=== PATIENT | female | born 1945 | race Caucasian/White ===

== ENCOUNTER 2024-03-30 16:39 | Emergency (ER) | payer MEDICARE, OTHER, SELFPAY ==
[2024-03-30 16:41] VITALS: BP 156/84
[2024-03-30 17:23] LABS: ALT (SGPT) 18 U/L (0-35); AST (SGOT) 27 U/L (14-36); Albumin 4.6 g/dl (3.5-5.0); Alkaline Phosphatase 68 U/L (38-126); Blood Urea Nitrogen 15 mg/dl (7-17); Calcium 9.5 mg/dl (8.4-10.2); Carbon Dioxide 25 mmol/L (22-30); Chloride 95 mmol/L (98-107); Glucose 100 mg/dl (70-99); Potassium 4.7 mmol/L (3.5-5.1); Sodium 135 mmol/L (135-145); Total Bilirubin 1.4 mg/dl (0.2-1.3); eGFR > 60.00
[2024-03-30 17:25] LABS: % Basophils 0.9 % (0-2); % Eosinophils 2.7 % (0-6); % Immature Granulocytes 1.4 % (0-0.5); % Lymphocytes 8.7 % (20.5-51.1); % Monocytes 4.6 % (1.7-9.3); % Neutrophils 81.7 % (42.2-75.2); Absolute Basophils 0.2 10^3/uL (0-0.2); Absolute Eosinophils 0.5 10^3/uL (0-0.7); Absolute Immature Granulocytes 0.3 10^3/uL (0-0.05); Absolute Lymphocytes 1.8 10^3/uL (1.2-3.4); Absolute Monocytes 0.9 10^3/uL (0.1-0.6); Absolute Neutrophils 16.7 10^3/uL (1.4-6.5); Mean Corpuscular Hgb 18.8 pg (27.0-31.0); Mean Corpuscular Volume 62.6 fL (81.0-99.0); Nucleated Red Blood Cells % 0 %; Platelet Count 296 10^3/uL (130-400); Red Blood Cell Count 6.39 10^6/uL (4.20-5.40); Red Cell Dist. Width 21.5 % (11.5-14.5); White Blood Cell Count 20.4 10^3/uL (4.8-10.8)
--- NOTE | 2024-03-30 18:05 | ED.GENMED ---
History of Present Illness
General
Chief Complaint: Dizziness
Source: patient
Exam Limitations: none
Time Seen by Provider: 03/30/24 17:52
History of Present Illness
History of Present Illness:
This is a 78 year old female that comes in with c/o dizziness. Sates that she went to PT yesterday for strengthening in her legs. States that this was her first visit and she got up on the table. States that she laid down and the Physical therapist
put his hand on the back of her head and flicked it to the left. States that she became nauseated and dizzy and she had humming in her ears. States that when she is sitting still she is ok but if she moves she feels like she is spinning. Denies any
fever, chills, chest pain, SOB, abd pain, vomiting, diarrhea, headache, urinary burning.
Past History
Past History
ED Past Medical History: Cancer (Skin CA), GERD, HTN, Hypercholesterolemia, Other (Polycythemia Vera, dizziness, Colitis, Diverticulitis, ) and Other (Diverticulitis, gastric ulcer and H. pylori)
ED Past Surgical History: Gynecological (Hysterectomy), Orthopedic (left knee replacement) and Other (Rectocele repair 2013, cataracts, )
Social History
Tobacco: Former smoker
Alcohol: None
Drug: None
Personal:
Living: alone
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
Family History
Family History: Other (n/c)
Review of Systems
Review of Systems
All Other Systems: ROS reviewed and negative except as documented in HPI and ROS
Constitutional: Reports no symptoms; Denies fever or chills
EENT: Reports no symptoms
Respiratory: Reports no symptoms; Denies cough or trouble breathing
Cardiac: Reports no symptoms; Denies chest pain
ABD/GI: Reports nausea; Denies abdominal pain, vomiting or diarrhea
: Reports no symptoms; Denies dysuria, frequency or urgency
Musculoskeletal: Reports no symptoms
Skin: Reports no symptoms
Neurological: Reports dizzy; Denies headache
Psychiatric: Reports no symptoms
Phy Exam
General Physical Exam
General Presentation: no apparent distress
General age: appears stated age
General Skin: warm and dry
General Habitus: elderly
General Mental: alert
General Hydration: appears well hydrated
ENT Exam
ENT Exam: TM's normal, pharynx normal and neck supple
Eye Exam
Eye Exam: EOMI
Cardiovascular Exam
Cardiovascular Exam: regular rate/rhythm, no edema and normal peripheral pulses
Pulmonary Exam
Pulmonary Exam: lungs clear, no respiratory distress, no rales, chest non tender, no crackles, no rhonchi, no wheezing and no cough
Gastrointestinal Exam
Gastrointestinal Exam: normal bowel sounds, non tender, soft, no organomegaly, no pulsatile mass and non distended
Musculoskeletal Exam
Musculoskeletal Exam: full ROM and no edema
Skin Exam
Skin Exam: normal color, warm/dry, no rash, no petechia and other (Open wound on right posterior upper arm from Skin cancer removal)
Psychiatric Exam
Psychiatric Exam: normal mood/affect
Course
Orders/Labs/Results
Orders:
Orders
03/30/24 16:45
Electrocardiogram (*1) Urgent
Reason for Study: Chest Pain
03/30/24 16:46
EKG- Treatment ONCE
03/30/24 16:53
CMP [Comprehensive Metabolic Panel] Urgent
Complete Blood Count/With Diff Urgent
03/30/24 18:04
CT Head & Neck Angio W/wo IV Urgent
Comment:
Reason For Exam: Dizziness after PT moved head
0.9% Sodium Chloride 500 ml [Nss] 500 ml IV BOLUS
Meclizine [Antivert] 50 mg PO NOW STA
03/30/24 18:07
Ondansetron Injectable [Zofran] 4 mg IV NOW STA
03/30/24 18:37
Troponin I Urgent
03/30/24 19:55
Urinalysis Reflex To Culture Urgent
Date Specimen was Collected: 03/30/24
Time Specimen was Collected: 19:53
Abnormal Lab Results
03/30/24
16:53
WBC 20.4 H 10^3/uL
(4.8-10.8)
RBC 6.39 H 10^6/uL
(4.20-5.40)
MCV 62.6 L fL
(81.0-99.0)
MCH 18.8 L pg
(27.0-31.0)
MCHC 30.0 L g/dL
(33.0-37.0)
RDW 21.5 H %
(11.5-14.5)
Abs Immat Gran (auto) 0.3 H 10^3/uL
(0-0.05)
Absolute Neuts (auto) 16.7 H 10^3/uL
(1.4-6.5)
Absolute Monos (auto) 0.9 H 10^3/uL
(0.1-0.6)
Immature Gran % 1.4 H %
(0-0.5)
Neutrophils % 81.7 H %
(42.2-75.2)
Lymphocytes % 8.7 L %
(20.5-51.1)
Chloride 95 L mmol/L
(98-107)
Glucose 100 H mg/dl
(70-99)
Total Bilirubin 1.4 H mg/dl
(0.2-1.3)
03/30/24 16:53
03/30/24 16:53
Leukocytosis (consistent to prior labs but slightly lower, Anemia, Chloride slightly low. Glucose nonfasting. Troponin <0.012, Urine negative for infection.
Vital Signs
Initial and Last Documented VS:
Initial Vital Signs
Temp Pulse Resp BP Pulse Ox
97.7 F 84 18 156/84 97
03/30/24 16:41 03/30/24 16:41 03/30/24 16:41 03/30/24 16:41 03/30/24 16:41
Last Documented Vital Signs
Temp Pulse Resp BP Pulse Ox
97.7 F 66 18 119/55 100
03/30/24 16:41 03/30/24 19:00 03/30/24 19:07 03/30/24 19:00 03/30/24 19:00
MDM/Problems Addressed
Differential Diagnosis Includes:
Vertigo,
MDM/Problems Addressed:
This is a 78 year old female that went to PT yesterday and patient states that she laid down on the table and they flicked her head to the left and she became nauseated and dizzy.
will check labs and urine, CT angio of head and neck. Give IV fluids, Antivert and Zofran.
Back into see patient. Patient states that she is feeling much better. Got patient OOB and she was able to walk around in the room without assistance. Reviewed labs and CT finding or Sinusitis. Patient states that she has never had trouble with
this. Feel that this may also be due to her Vertigo. Will have patient increase her water intake to 8-8oz glasses daily. Will sent prescription for Antivert and patient to follow up with the family doctor. Return with any concerns.
Chronic conditions affecting care:
Vertigo
Acute Exacerbation and/or Progression of Chronic Illness:
Vertigo
*Radiology
Radiology exam reviewed: radiology read reviewed (CTA head and neck-Moderate bilateral sphenoid sinusitis. Mild diffuse cortical and cerebellar atrophy. There is a small amount of partially calcific atherosclerotic plaque at the right carotid
bifurcation without significant stenosis. There is a 2cm mass in the right lobw of the thyroid which, if ) and other (CT cont- if clinically indicated, could be best further evaluated and followed with Thyroid ultrasounds. I note that a similar mass
was demonstrated on 03/29/2018 ultrasound examination )
*Pulse Oximetry
Patient hypoxic: no
*EKG
Interpreted by ED Provider?: Yes
Heart Rate: 79
Rate: normal
Rhythm: sinus
[place]: left axis deviation
Interval: normal interval
QRS Pattern: low voltage
Ischemia: no ischemia
*Tool Maker Bench Interpretation
Rate: normal
Heart Rate: 74
Rhythm: sinus
*Critical Care Note
Total Time (30-74mins, 75-104mins- exclusive of procedures): Not Applicable
ED Attending Note
-
Portions of this chart may have been created with voice recognition software.� Occasional wrong word or��sound alike� substitutions may have occurred due to the inherent limitations of voice recognition software.
Discharge Plan
Departure
Patient Disposition: Home (Routine Discharge)
Date of Disposition: 03/30/24
Time of Disposition: 20:56
Patient with high blood pressure during this ER visit?: No
Condition: Good
Covid-19: Not Applicable
Discharge Problem:
Vertigo
Instructions: Vertigo (a Type of Dizziness) (DC)
Prescriptions:
New
meclizine [Antivert] 50 mg tablet
25 mg PO BID PRN (Reason: dizziness) Qty: 10 0RF
No Action
pravastatin 20 MG tablet
20 mg PO HS
acetaminophen [Tylenol Arthritis] 650 MG tablet extended release
650 mg PO DAILYPRN PRN (Reason: pain)
propranolol 10 MG tablet
10 mg PO BID
pantoprazole 40 MG tablet,delayed release (DR/EC)
40 mg PO BID
hydrochlorothiazide 25 MG tablet
25 mg PO DAILY
meclizine 25 MG tablet
25 mg PO Q8HPRN PRN (Reason: Dizziness or vertigo ) Qty: 20 0RF
Referrals:
Nai Lozada MD [Family Provider] - Call in 1-3 days for appt
Activity Restrictions/Additional Instructions:
As discussed, your blood work shows your elevated white blood cell count but this is consistent with your prior labs. Your urine is negative for infection and your CT of the head and neck shows that you have sinusitis. Please increase your water
intake to 8-8oz glasses daily. Your prescription for Antivert has been sent to your Pharmacy. You may take this every 12 hours as needed for dizziness. Follow up with the family doctor for recheck. IF YOU HAVE INCREASED OR CHANGING DIZZINESS, OR YOU
HAVE ANY OTHER CONCERNS PLEASE RETURN TO THE EMERGENCY ROOM.
Interventions
Interventions:
*Risk Screen - Suicide Last Done: 03/30/24 18:21
*General Assessment Last Done: 03/30/24 18:21
*Neglect/Abuse Screening Last Done: 03/30/24 18:21
ED- Fall Risk Assessment Last Done: 03/30/24 19:07
*ED COVID-19 Vaccine History Last Done: 03/30/24 18:21
ED- Neurological Assessment Last Done: 03/30/24 19:06
ED- Cardiac Assessment Last Done: 03/30/24 19:07
Discharge Date and Time
Print Language: NORWEGIAN
[2024-03-30 18:20] VITALS: BMI 31.9
[2024-03-30] MEDS: ANTIVERT 50 MG PO (18:37)
[2024-03-30] MEDS: ZOFRAN 4 MG IV (18:38)
[2024-03-30] MEDS: NSS 500 IV (18:39)
[2024-03-30 19:00] VITALS: BP 119/55
[2024-03-30 19:13] LABS: Troponin I < 0.012 ng/ml
[2024-03-30 20:00] VITALS: BP 111/56
[2024-03-30 20:07] LABS: Urine Albumin Negative (Neg - Trace); Urine Bilirubin Negative (Negative); Urine Character Clear (Clear); Urine Color Yellow; Urine Glucose Negative (Negative); Urine Ketone Negative (Negative); Urine Leukocyte Negative (Negative); Urine Nitrite Negative (Negative); Urine Occult Blood Negative (Negative); Urine Specific Gravity 1.005 (<1.030); Urine Urobilinogen Negative (Neg - 1+); Urine pH 6.5 (5.0-9.0)
== END 2024-03-30 21:16 | disposition home or self-care (01) ==
LOC: EMR 16:39
PROVIDERS: Clinical Nurse Specialist Family Health; Physician Assistant; EMERGENCY PHYSICIAN Emergency Medicine; FAMILY PHYSICIAN Family Medicine
DX: R42 Dizziness and giddiness (principal); K21.9 Gastro-esophageal reflux disease without esophagitis; I10 Essential (primary) hypertension; E78.00 Pure hypercholesterolemia, unspecified; Z87.891 Personal history of nicotine dependence
CPT/HCPCS: 96374; 96361; 99284; 70496; 70498; 80053; 81003; 84484; 85025; 93005; Q9967

== ENCOUNTER → 2024-04-28 13:45 | Outpatient (REF) | payer MEDICARE, OTHER, SELFPAY | LOC: WDC 13:45 | PROVIDERS: ATTENDING PHYSICIAN Family Medicine | DX: Z12.31 Encounter for screening mammogram for malignant neoplasm of breast (principal) | CPT/HCPCS: 77063; 77067 ==

== ENCOUNTER → 2024-05-09 11:31 | Outpatient (REF) | payer MEDICARE, OTHER, SELFPAY | LOC: RAD 11:31 | PROVIDERS: ATTENDING PHYSICIAN Family Medicine; OTHER PHYSICIAN Otolaryngology | DX: E04.1 Nontoxic single thyroid nodule (principal) | CPT/HCPCS: 76536 ==

== ENCOUNTER 2024-08-15 12:21 | Emergency (ER) | payer MEDICARE, OTHER, SELFPAY ==
[2024-08-15] VITALS (8 sets, daily range): BP systolic 100–135; BP diastolic 52–70; BMI 31.7
--- NOTE | 2024-08-15 12:26 | ED.GENMED ---
ED Provider Triage
<Arturo Morelos PA-C - Last Filed: 08/15/24 12:32>
-
Patient seen by provider in Triage?: Seen in Triage
Attestation: A medical screening examination has been initiated by a qualified medical provider. Based on the assessment performed at this time, it has been determined that an emergent medical condition may exist and the patient has been informed
that further medical evaluation and possible additional diagnostic testing may be needed.
HPI: 79-year-old female presents for evaluation of confusion and abnormal labs. Had labs checked yesterday showing a low sodium level, family member is uncertain of the exact lab value. She does take hydrochlorothiazide. Has been intermittently
confused for the past 6 days. Also complaining of acute on chronic low back pain with inability to ambulate, had outpatient x-rays showing progression of prior compression fractures
GENERAL: Alert , in no apparent distress
EYE: No visual abnormalities.
NECK: Trachea midline
ENT: No visible abnormalities.
LUNGS: No acute respiratory distress
NEUROLOGICAL: Alert and oriented
SKIN: Skin intact. No visible changes.
MUSCULOSKELETAL: Moving extremities normally
PSYCH: Normal and appropriate interaction.
This is a medical evaluation conducted in person to initiate diagnostic evaluation and provide initial therapeutics. Please see further documentation by the treating clinician.
History of Present Illness
<Arturo Morelos PA-C - Last Filed: 08/15/24 12:32>
General
Chief Complaint: Abnormal Lab Value
Time Seen by Provider: 08/15/24 16:01
<Bandar White Jr., PA-C - Last Filed: 08/15/24 20:34>
General
Source: patient and family
Exam Limitations: none
Nursing documentation reviewed up to this point in time: agreed with
History of Present Illness
History of Present Illness:
79-year-old female past medical history of polycythemia vera presenting to the emergency she was called and told that she had a sodium level in the 120s and was told to Go immediately to the ER. Has had some back pain but has a known vertebral
compression fracture. Was told to follow-up with Ortho for this. Also has felt 'off. Denies any loss of conscious any syncopal episodes. Denies any chest pain shortness of breath. Denies any abdominal pain. Has had some decreasing bowel
movements.
Past History
<Arturo Morelos PA-C - Last Filed: 08/15/24 12:32>
Past History
ED Past Medical History: Cancer (Skin CA), GERD, HTN, Hypercholesterolemia, Other (Polycythemia Vera, dizziness, Colitis, Diverticulitis, ) and Other (Diverticulitis, gastric ulcer and H. pylori)
ED Past Surgical History: Gynecological (Hysterectomy), Orthopedic (left knee replacement) and Other (Rectocele repair 2013, cataracts, )
Social History
Tobacco: Former smoker
Alcohol: None
Drug: None
Personal:
Living: alone
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
Family History
Family History: Other (n/c)
Review of Systems
<Bandar White Jr., PA-C - Last Filed: 08/15/24 20:34>
Review of Systems
Allergies reviewed?: Yes
All Other Systems: ROS reviewed and negative except as documented in HPI and ROS
Phy Exam
<Bandar White Jr., PA-C - Last Filed: 08/15/24 20:34>
Physical Exam
Physical Exam:
GENERAL: Alert , in no apparent distress
EYE: pupils equal and reactive
NECK: Supple, no significant adenopathy.
ENT: o/p clr, mmm.
CARDIAC: Regular rate and rhythm .
LUNGS: Clear breath sounds bilaterally, no acute respiratory distress, no wheezes/rales/rhonchi
ABDOMEN: Soft, without focal tenderness, no r/g, no cvat
NEUROLOGICAL: Alert and oriented, no focal neuro deficits
SKIN: Warm and dry, skin intact.
MUSCULOSKELETAL: No edema, well perfused.
PSYCH: Normal and appropriate interaction.
Course
<Arturo Morelos PA-C - Last Filed: 08/15/24 12:32>
Orders/Labs/Results
Orders:
Orders
08/15/24 12:40
Complete Blood Count/With Diff Urgent
Comprehensive Metabolic Panel Urgent
Lipase Urgent
Comment: ADD ON
Serum Osmolality Urgent
TSH Urgent
08/15/24 12:53
Osmolality, Random Urine Urgent
Date Specimen was Collected: 08/15/24
Time Specimen was Collected: 12:35
Urine Sodium Urgent
Date Specimen was Collected: 08/15/24
Time Specimen was Collected: 12:35
08/15/24 12:54
Urinalysis Reflex To Culture Urgent
Date Specimen was Collected: 08/15/24
Time Specimen was Collected: 12:34
Urine Microscopic Reflex Cult Urgent
Urine Culture Urgent
REKHA Source: U
Specimen Description:
Date Specimen was Collected: 08/15/24
Time Specimen was Collected: 12:34
08/15/24 16:51
CT Head W/o Iv Contrast Urgent
Comment:
Reason For Exam: hit head, confusion
Lumbar Spine, 2 or 3 View [CR Lumbar Spine 2 Or 3 Views] Urgent
Comment:
Reason For Exam: low back pain
08/15/24 17:01
Add On- LAB Urgent
Tests Added?: lipase
08/15/24 17:11
0.9% Sodium Chloride 500 ml [Nss] 500 ml IV BOLUS
08/15/24 17:53
Abdomen Xray - 1 View [CR Abdomen - 1 View] Urgent
Comment:
Reason For Exam: constipation
08/15/24 18:40
Ketorolac [Toradol] 15 mg IV NOW STA
Abnormal Lab Results
08/15/24 08/15/24 08/15/24
12:40 12:53 12:54
WBC 34.5 H 10^3/uL
(4.8-10.8)
RBC 7.05 H 10^6/uL
(4.20-5.40)
MCV 60.9 L fL
(81.0-99.0)
MCH 17.4 L pg
(27.0-31.0)
MCHC 28.7 L g/dL
(33.0-37.0)
RDW 22.5 H %
(11.5-14.5)
Plt Count 413 H 10^3/uL
(130-400)
Abs Immat Gran (auto) 1.1 H 10^3/uL
(0-0.05)
Absolute Neuts (auto) 29.8 H 10^3/uL
(1.4-6.5)
Absolute Monos (auto) 1.0 H 10^3/uL
(0.1-0.6)
Absolute Eos (auto) 0.9 H 10^3/uL
(0-0.7)
Absolute Basos (auto) 0.4 H 10^3/uL
(0-0.2)
Immature Gran % 3.2 H %
(0-0.5)
Neutrophils % 86.6 H %
(42.2-75.2)
Lymphocytes % 3.7 L %
(20.5-51.1)
Sodium 130 L mmol/L
(135-145)
Chloride 92 L mmol/L
(98-107)
BUN 22 H mg/dl
(7-17)
Glucose 119 H mg/dl
(70-99)
Serum Osmolality 271 L mOsm/kg
(275-300)
Total Bilirubin 1.4 H mg/dl
(0.2-1.3)
Albumin 5.3 H g/dl
(3.5-5.0)
Leukocyte Esterase Rfl 1+ A
(Negative)
Urine Bacteria (Reflex) Few A
(Negative)
Urine Sodium 22 L mmol/L
(30-90)
Urine Albumin (Reflex) 1+ A
(Neg - Trace)
08/15/24 12:40
08/15/24 12:40
Vital Signs
Initial and Last Documented VS:
Initial Vital Signs
Temp Pulse Resp BP Pulse Ox
97.5 F 98 16 135/66 94
08/15/24 12:26 08/15/24 12:26 08/15/24 12:26 08/15/24 12:26 08/15/24 12:26
Last Documented Vital Signs
Temp Pulse Resp BP Pulse Ox
98.8 F 83 16 118/53 98
08/15/24 20:08 08/15/24 20:08 08/15/24 19:00 08/15/24 20:08 08/15/24 20:08
<Bandar White Jr., PA-Gómez - Last Filed: 08/15/24 20:34>
Orders/Labs/Results
Orders:
Orders
08/15/24 12:40
Complete Blood Count/With Diff Urgent
Comprehensive Metabolic Panel Urgent
Lipase Urgent
Comment: ADD ON
Serum Osmolality Urgent
TSH Urgent
08/15/24 12:53
Osmolality, Random Urine Urgent
Date Specimen was Collected: 08/15/24
Time Specimen was Collected: 12:35
Urine Sodium Urgent
Date Specimen was Collected: 08/15/24
Time Specimen was Collected: 12:35
08/15/24 12:54
Urinalysis Reflex To Culture Urgent
Date Specimen was Collected: 08/15/24
Time Specimen was Collected: 12:34
Urine Microscopic Reflex Cult Urgent
Urine Culture Urgent
REKHA Source: U
Specimen Description:
Date Specimen was Collected: 08/15/24
Time Specimen was Collected: 12:34
08/15/24 16:51
CT Head W/o Iv Contrast Urgent
Comment:
Reason For Exam: hit head, confusion
Lumbar Spine, 2 or 3 View [CR Lumbar Spine 2 Or 3 Views] Urgent
Comment:
Reason For Exam: low back pain
08/15/24 17:01
Add On- LAB Urgent
Tests Added?: lipase
08/15/24 17:11
0.9% Sodium Chloride 500 ml [Nss] 500 ml IV BOLUS
08/15/24 17:53
Abdomen Xray - 1 View [CR Abdomen - 1 View] Urgent
Comment:
Reason For Exam: constipation
08/15/24 18:40
Ketorolac [Toradol] 15 mg IV NOW STA
Abnormal Lab Results
08/15/24 08/15/24 08/15/24
12:40 12:53 12:54
WBC 34.5 H 10^3/uL
(4.8-10.8)
RBC 7.05 H 10^6/uL
(4.20-5.40)
MCV 60.9 L fL
(81.0-99.0)
MCH 17.4 L pg
(27.0-31.0)
MCHC 28.7 L g/dL
(33.0-37.0)
RDW 22.5 H %
(11.5-14.5)
Plt Count 413 H 10^3/uL
(130-400)
Abs Immat Gran (auto) 1.1 H 10^3/uL
(0-0.05)
Absolute Neuts (auto) 29.8 H 10^3/uL
(1.4-6.5)
Absolute Monos (auto) 1.0 H 10^3/uL
(0.1-0.6)
Absolute Eos (auto) 0.9 H 10^3/uL
(0-0.7)
Absolute Basos (auto) 0.4 H 10^3/uL
(0-0.2)
Immature Gran % 3.2 H %
(0-0.5)
Neutrophils % 86.6 H %
(42.2-75.2)
Lymphocytes % 3.7 L %
(20.5-51.1)
Sodium 130 L mmol/L
(135-145)
Chloride 92 L mmol/L
(98-107)
BUN 22 H mg/dl
(7-17)
Glucose 119 H mg/dl
(70-99)
Serum Osmolality 271 L mOsm/kg
(275-300)
Total Bilirubin 1.4 H mg/dl
(0.2-1.3)
Albumin 5.3 H g/dl
(3.5-5.0)
Leukocyte Esterase Rfl 1+ A
(Negative)
Urine Bacteria (Reflex) Few A
(Negative)
Urine Sodium 22 L mmol/L
(30-90)
Urine Albumin (Reflex) 1+ A
(Neg - Trace)
08/15/24 12:40
08/15/24 12:40
Vital Signs
Initial and Last Documented VS:
Initial Vital Signs
Temp Pulse Resp BP Pulse Ox
97.5 F 98 16 135/66 94
08/15/24 12:26 08/15/24 12:26 08/15/24 12:26 08/15/24 12:26 08/15/24 12:26
Last Documented Vital Signs
Temp Pulse Resp BP Pulse Ox
98.8 F 83 16 118/53 98
02/04/25 20:08 08/15/24 20:08 08/15/24 19:00 08/15/24 20:08 08/15/24 20:08
<Bandar White Jr., PA-C - Last Filed: 08/15/24 20:34>
MDM/Problems Addressed
MDM/Problems Addressed:
79-year-old female presenting to the emergency department today with concerns of low sodium. Here sodium level 130 chloride 92. She does cart drink a fair amount of free water. No altered mental status during my assessment normal interaction
fully alert and oriented. White count 34.5 which is slightly higher than her baseline. Does have a history of polycythemia and has plans for phlebotomy as an outpatient for this.
<Bandar White Jr., PA-C - Last Filed: 08/15/24 20:34>
*Critical Care Note
Total Time (30-74mins, 75-104mins- exclusive of procedures): Not Applicable
ED Attending Note
<Arturo Morelos PA-C - Last Filed: 08/15/24 12:32>
-
Portions of this chart may have been created with voice recognition software.� Occasional wrong word or��sound alike� substitutions may have occurred due to the inherent limitations of voice recognition software.
Discharge Plan
Departure
Patient Disposition: Home (Routine Discharge)
Date of Disposition: 08/15/24
Time of Disposition: 20:26
Patient with high blood pressure during this ER visit?: No
Condition: Good
Covid-19: Not Applicable
Discharge Problem:
Hyponatremia, Constipation, Vertebral compression fracture, Leukocytosis
Instructions: Polycythemia vera, Hyponatremia
Prescriptions:
New
lidocaine 5 % adhesive patch,medicated
1 patch topical DAILY Qty: 15 0RF
No Action
pravastatin 20 MG tablet
20 mg PO HS
acetaminophen [Tylenol Arthritis] 650 MG tablet extended release
650 mg PO DAILYPRN PRN (Reason: pain)
propranolol 10 MG tablet
10 mg PO BID
pantoprazole 40 MG tablet,delayed release (DR/EC)
40 mg PO BID
hydrochlorothiazide 25 MG tablet
25 mg PO DAILY
meclizine 25 MG tablet
25 mg PO Q8HPRN PRN (Reason: Dizziness or vertigo ) Qty: 20 0RF
meclizine [Antivert] 50 mg tablet
25 mg PO BID PRN (Reason: dizziness) Qty: 10 0RF
Referrals:
Williams Contreras MD [Active] - Follow up in 5-7 days
Lavinia Diehl MD [Non-Admitting Privileges] - Follow up in 5-7 days
Nai Lozada MD [Family Provider] -
Jack Marsh MD [Active] - Follow up in 5-7 days
Activity Restrictions/Additional Instructions:
You came to the emergency department today with concerns of low sodium. Here your sodium was 130. Please follow-up closely with your primary care doctor for reassessment of this. You can also follow-up with neurology concerning there was some
age-related changes on your. Additionally you had elevations on your blood counts. Please follow-up closely for this as well. Return for any worsening, new or concerning symptoms.
Interventions
Interventions:
*Risk Screen - Suicide Last Done: 08/15/24 12:30
*General Assessment Last Done: 08/15/24 12:30
*Neglect/Abuse Screening Last Done: 08/15/24 17:04
ED- Fall Risk Assessment Last Done: 08/15/24 20:08
*ED COVID-19 Vaccine History Last Done: 08/15/24 17:04
Discharge Date and Time
Print Language: STATELESS
[2024-08-15 13:03] LABS: Hematocrit 42.9 % (37.0-47.0); Hemoglobin 12.3 g/dL (12.0-16.0); Mean Corp Hgb Conc. 28.7 g/dL (33.0-37.0); Mean Corpuscular Hgb 17.4 pg (27.0-31.0); Mean Corpuscular Volume 60.9 fL (81.0-99.0); Red Blood Cell Count 7.05 10^6/uL (4.20-5.40); Red Cell Dist. Width 22.5 % (11.5-14.5); White Blood Cell Count 34.5 10^3/uL (4.8-10.8)
[2024-08-15 13:14] LABS: Urine Albumin 1+ (Neg - Trace); Urine Bilirubin Negative (Negative); Urine Character Clear (Clear); Urine Color Yellow; Urine Glucose Negative (Negative); Urine Ketone Negative (Negative); Urine Leukocyte 1+ (Negative); Urine Nitrite Negative (Negative); Urine Occult Blood Negative (Negative); Urine Urobilinogen Negative (Neg - 1+)
[2024-08-15 13:14] LABS: ALT (SGPT) 16 U/L (0-35); AST (SGOT) 23 U/L (14-36); Albumin 5.3 g/dl (3.5-5.0); Alkaline Phosphatase 68 U/L (38-126); Blood Urea Nitrogen 22 mg/dl (7-17); Calcium 9.6 mg/dl (8.4-10.2); Carbon Dioxide 26 mmol/L (22-30); Chloride 92 mmol/L (98-107); Glucose 119 mg/dl (70-99); Potassium 4.6 mmol/L (3.5-5.1); Sodium 130 mmol/L (135-145); Total Bilirubin 1.4 mg/dl (0.2-1.3); Total Protein 7.9 g/dl (6.3-8.2)
[2024-08-15 13:35] LABS: % Eosinophils 2.6 % (0-6); % Immature Granulocytes 3.2 % (0-0.5); % Lymphocytes 3.7 % (20.5-51.1); % Monocytes 2.9 % (1.7-9.3); % Neutrophils 86.6 % (42.2-75.2); Absolute Basophils 0.4 10^3/uL (0-0.2); Absolute Eosinophils 0.9 10^3/uL (0-0.7); Absolute Immature Granulocytes 1.1 10^3/uL (0-0.05); Absolute Lymphocytes 1.3 10^3/uL (1.2-3.4); Absolute Neutrophils 29.8 10^3/uL (1.4-6.5); Normal RBC Morphology No; Nucleated Red Blood Cells % 0.1 %; Platelet Count 413 10^3/uL (130-400)
[2024-08-15 13:36] LABS: Acanthocytes FEW; Anisocytosis 1+; Hypochromasia 2+; Ovalocytes 1+; Polychromasia 1+; Target Cells 1+
[2024-08-15 13:37] LABS: Osmolality Urine 473 mOsm/kg (300-900)
[2024-08-15 13:43] LABS: Osmolality Serum 271 mOsm/kg (275-300)
[2024-08-15 13:45] LABS: TSH 1.92 uIU/ml (0.47-4.68)
[2024-08-15 13:51] LABS: Urine Sodium 22 mmol/L (30-90)
[2024-08-15 14:05] LABS: Urine Squamous Cell >30 /LPF (Few)
[2024-08-15 14:06] LABS: Urine Bacteria Few (Negative); Urine Red Blood Cell 0-2 /HPF (0-2)
[2024-08-15] MEDS: NSS 500 IV (17:16)
[2024-08-15 17:40] LABS: Lipase 96 U/L (23-300)
[2024-08-15] MEDS: TORADOL 15 MG IV (18:42)
== END 2024-08-15 20:59 | disposition home or self-care (01) ==
LOC: EMR 12:21
PROVIDERS: Physician Assistant; EMERGENCY PHYSICIAN Emergency Medicine; FAMILY PHYSICIAN Family Medicine
DX: M48.56XA Collapsed vertebra, not elsewhere classified, lumbar region, initial encounter for fracture (principal); E87.1 Hypo-osmolality and hyponatremia; K59.00 Constipation, unspecified; D72.829 Elevated white blood cell count, unspecified; Z87.891 Personal history of nicotine dependence
CPT/HCPCS: 99285; 96374; 96361; 70450; 72100; 74018; 80053; 81003; 81015; 83690; 83930; 83935; 84300; 84443; 85025; 87086

== ENCOUNTER → 2025-05-02 11:31 | Outpatient (REF) | payer MEDICARE, OTHER, SELFPAY | LOC: WDC 11:31 | PROVIDERS: ATTENDING PHYSICIAN Family Medicine | DX: Z12.31 Encounter for screening mammogram for malignant neoplasm of breast (principal) | CPT/HCPCS: 77063; 77067 ==